=== PATIENT | male | born 1950 | race Caucasian/White ===

== ENCOUNTER 2020-05-25 08:16 | Day surgery (SDC) | payer MEDICARE ==
[~2020-05-25] VITALS: Ht 165.1 cm; Wt 79.1 kg
[~2020-05-25 08:16] MED LIST: Coumadin4 MG PO; ENAL10 PO; HYDACE5 PO; TRAM50 PO; UNKNOWN BP MED; WARF1 PO
--- NOTE | 2020-05-25 09:15 | NUR ---
History, Chart, Medications and Allergies reviewed before start of procedure. Patient reports completing Chlorhexadine shower X2 prior to admission to hospital. Lungs clear T/O to Auscultation. Patient confirms NPO status and agrees with scheduled surgery.
--- NOTE | 2020-05-25 11:57 | NUR ---
PT INCISIONS X3 TO ABDOMEN WITH DURABOND IN PLACE, NO SIGN OF BLEEDING OR SWELLING NOTED. PROVIDED PAIN MED, FOOD AND FLUID. GAVE PHONE SO PATIENT COULD CALL .
--- NOTE | 2020-05-25 12:32 | NUR ---
Patient up to Ambulate independently. Gait steady. Discharge instructions reviewed with patient. Patient verbalizes understanding. Copy given to patient to take home. Patient States Post-Procedure ride home has been arranged. Discharged via wheelchair to private car for ride home.INCISIONS RTO ABDOMENT WITHOUT BLEEDING OR SWELLING. GAVE SCROTAL SUPPORT TO PATIENT. ALL BELONINGS RTETURNED TO PATIENT.
== END 2020-05-25 22:57 | disposition home or self-care (01) ==
LOC: ORSCMMR 08:16 → ORD 10:00 → ORSCMMR 22:57
PROVIDERS: Surgery
PROC: 0YU54JZ Supplement Right Inguinal Region with Synthetic Substitute, Percutaneous Endoscopic Approach (ICD-10-PCS; principal; 2020-05-25 10:00)
PROC: 8E0W4CZ Robotic Assisted Procedure of Trunk Region, Percutaneous Endoscopic Approach (ICD-10-PCS; principal; 2020-05-25 10:00)
DX: K40.90 Unilateral inguinal hernia, without obstruction or gangrene, not specified as recurrent (principal); I49.9 Cardiac arrhythmia, unspecified; Z87.891 Personal history of nicotine dependence; Z79.01 Long term (current) use of anticoagulants
CPT/HCPCS: 49650; S2900; A9270; C1781; J0690; J1100; J1885; J2250; J2405; J2704; J2710; J3010; J7120

== ENCOUNTER → 2021-07-26 | Outpatient (CLI) | payer MEDICARE ==
[2021-07-26 14:13] LABS: Stool Occult Bld Immuno 1 Negative (NEGATIVE)
== END | disposition home or self-care (01) ==
LOC: LAB 07:30 → LAB SHORT 07:30
PROVIDERS: Family Medicine
DX: Z12.11 Encounter for screening for malignant neoplasm of colon (principal)
CPT/HCPCS: G0328

== ENCOUNTER 2023-09-01 14:36 | Emergency (ER) | payer MEDICARE ==
[~2023-09-01] VITALS: Ht 167.6 cm; Wt 68.0 kg
[~2023-09-01 14:36] MED LIST changes: +ATOR10 PO; +ELIQUIS5 M3 PO; +ENALAPRIL MALEA10 M2 PO; +MEMA10 PO; +OMEPRAZOLE MAGN20 M1 PO; +SILDENAFIL CIT100 MG
[2023-09-01 14:48] VITALS: BP 149/102
[2023-09-01] MEDS ORDERED: QUETIAPINE FUMA50 M2 PO (19:53)
== END 2023-09-01 20:00 | disposition home or self-care (01) ==
LOC: ER 14:36
DX: F03.911 Unspecified dementia, unspecified severity, with agitation (principal); I10 Essential (primary) hypertension; Z87.891 Personal history of nicotine dependence; Z79.899 Other long term (current) drug therapy
CPT/HCPCS: 99284

== ENCOUNTER 2023-10-23 16:24 | Emergency (ER) | payer MEDICARE ==
[~2023-10-23] VITALS: Ht 162.6 cm; Wt 63.5 kg
[~2023-10-23 16:24] MED LIST changes: +QUETIAPINE FUMA50 M2 PO
[2023-10-23 16:41] VITALS: BP 134/67
[2023-10-23 19:33] LABS: BASOPHILS ABSOLUTE AUTO 0.07 K/mm3 (0.00-0.23); BASOPHILS PERCENT AUTO 1 % (0-2); EOSINOPHILS ABSOLUTE AUTO 0.04 K/mm3 (0.00-0.68); EOSINOPHILS PERCENT AUTO 0 % (0-6); Hematocrit 43.5 % (37.0-53.0); Hemoglobin 15.1 g/dL (13.5-17.5); IMMATURE GRAN ABSOLUTE AUTO 0.04 K/mm3 (0.00-0.10); IMMATURE GRAN PERCENT AUTO 0 % (0-1); LYMPHOCYTES ABSOLUTE AUTO 0.98 K/mm3 (0.84-5.20); LYMPHOCYTES PERCENT AUTO 8 % (21-46); MONOCYTES ABSOLUTE AUTO 1.19 K/mm3 (0.16-1.47); MONOCYTES PERCENT AUTO 10 % (4-13); Mean Corpuscular HGB 30.7 pg (26.0-34.0); Mean Corpuscular HGB Conc 34.7 g/dL (31.5-36.5); Mean Corpuscular Volume 88 fL (80-100); Mean Platelet Volume 10.1 fL (9.1-12.4); NEUTROPHILS ABSOLUTE AUTO 9.84 K/mm3 (1.96-9.15); NEUTROPHILS PERCENT AUTO 81 % (41-73); Platelet Count 326 K/mm3 (150-400); RDW Coefficient Variation 14.3 % (11.7-14.2); RDW Standard Deviation 45.9 fL (35.1-46.3); Red Blood Cell Count 4.92 M/mm3 (4.30-5.90); White Blood Cell Count 12.16 K/mm3 (4.00-11.30)
[2023-10-23] MEDS ORDERED: QUEtiapine Fumarate 50 MG TAB PO ONE (19:40)
[2023-10-23 19:50] LABS: Albumin, Blood 3.8 g/dL (3.4-5.0); Albumin/Globulin Ratio 1.2 (0.8-1.8); Bilirubin, Total 0.9 mg/dL (0.1-1.0); Bun/Creatinine Ratio 17.6 (12.0-20.0); Calcium, Blood 8.8 mg/dL (8.5-10.1); Creatinine, Blood 1.02 mg/dL (0.60-1.20); Globulin, Blood 3.3 g/dL (2.2-4.0); Potassium, Blood 3.8 mmol/L (3.5-5.5); Total Protein, Blood 7.1 g/dL (6.4-8.2)
[2023-10-25] MEDS ORDERED: QUET25 PO (15:00)
== END 2023-10-24 01:05 | disposition home or self-care (01) ==
LOC: ER 16:24
PROVIDERS: Emergency Medicine
DX: F03.911 Unspecified dementia, unspecified severity, with agitation (principal)
CPT/HCPCS: 80053; 84443; 85025; 99285; A9270

== ENCOUNTER 2023-10-24 17:21 | Emergency (ER) | payer MEDICARE ==
[~2023-10-24] VITALS: Ht 165.1 cm; Wt 74.8 kg
[2023-10-24 17:30] VITALS: BP 152/92
[2023-10-24] MEDS ORDERED: QUEtiapine Fumarate 100 MG Tab PO ONE (19:35)
[2023-10-25] MEDS ORDERED: QUET25 PO (15:00)
== END 2023-10-24 21:40 | disposition home or self-care (01) ==
LOC: ER 17:21
DX: F03.911 Unspecified dementia, unspecified severity, with agitation (principal); I10 Essential (primary) hypertension; I48.91 Unspecified atrial fibrillation; Z79.899 Other long term (current) drug therapy
CPT/HCPCS: 99285; A9270

== ENCOUNTER 2023-10-25 13:06 | Emergency (ER) | payer MEDICARE ==
[~2023-10-25] VITALS: Ht 177.8 cm; Wt 74.8 kg
[2023-10-25] MEDS ORDERED: QUET25 PO (15:00)
[2023-10-25] MEDS ORDERED: QUEtiapine Fumarate 25 MG Tab PO ONE ×2 (15:00→17:10)
[2023-10-25] MEDS ORDERED: Haloperidol Lactate Inj. 5 MG/ML Injection IM ONE (17:55)
[2023-10-25] MEDS ORDERED: DiphenhydrAMINE HCl 50 MG/ML 1ML Vial IV ONE (18:00)
[2023-10-25] MEDS ORDERED: LORazepam 2 MG/ML 1ML Injection IV ONE (18:00)
[2023-10-25] MEDS ORDERED: DiphenhydrAMINE HCl 50 MG/ML 1ML Vial ONE (18:05)
[2023-10-25] MEDS ORDERED: LORazepam 2 MG/ML 1ML Injection ONE (18:05)
[2023-10-25] MEDS ORDERED: OLANZapine 10 MG Vial IM ONE (21:05)
[2023-10-26] MEDS ORDERED: QUET100 PO (08:08)
[2023-10-26] MEDS ORDERED: WARF5 PO (08:11)
[2023-10-26 09:42] VITALS: BP 139/89
[2023-10-26] MEDS ORDERED: QUEtiapine Fumarate 25 MG Tab PO ONE (11:40)
== END 2023-10-26 12:02 | disposition home or self-care (01) ==
LOC: ER 13:06
DX: F03.911 Unspecified dementia, unspecified severity, with agitation (principal); Z79.899 Other long term (current) drug therapy; I48.91 Unspecified atrial fibrillation; I10 Essential (primary) hypertension; Z87.891 Personal history of nicotine dependence
CPT/HCPCS: 93005; 93010; 99284-25; A9270; J1200; J1630; J2060

== ENCOUNTER 2023-10-31 02:43 | Emergency (ER) | payer MEDICARE ==
[~2023-10-31] VITALS: Ht 170.2 cm; Wt 72.6 kg
[~2023-10-31 02:43] MED LIST changes: +QUET100 PO; +QUET25 PO; +WARF5 PO
[2023-10-31 03:10] VITALS: BP 180/99
== END 2023-10-31 05:12 | disposition home or self-care (01) ==
LOC: ER 02:43
DX: F03.911 Unspecified dementia, unspecified severity, with agitation (principal); I48.91 Unspecified atrial fibrillation; I10 Essential (primary) hypertension; Z87.891 Personal history of nicotine dependence; Z79.01 Long term (current) use of anticoagulants; Z79.899 Other long term (current) drug therapy
CPT/HCPCS: 99282

== ENCOUNTER 2023-11-05 00:52 | Emergency (ER) | payer MEDICARE, OTHER ==
[~2023-11-05] VITALS: Ht 160 cm; Wt 54.4 kg
[2023-11-05] MEDS ORDERED: Haloperidol Lactate Inj. 5 MG/ML Injection ONE (01:01)
[2023-11-05] MEDS ORDERED: Haloperidol Lactate Inj. 5 MG/ML Injection IM ONE (01:05)
[2023-11-05] MEDS ORDERED: QUEtiapine Fumarate 100 MG Tab PO ONE (02:05)
[2023-11-05 05:00] VITALS: BP 130/69
== END 2023-11-05 05:12 | disposition home or self-care (01) ==
LOC: ER 00:52
DX: F03.911 Unspecified dementia, unspecified severity, with agitation (principal); I48.91 Unspecified atrial fibrillation; I10 Essential (primary) hypertension; Z87.891 Personal history of nicotine dependence; Z79.01 Long term (current) use of anticoagulants; Z79.899 Other long term (current) drug therapy
CPT/HCPCS: 93005; 93010; 96372; 99285-25; A9270; J1630

== ENCOUNTER 2023-11-07 04:27 | Emergency (ER) | payer MEDICARE ==
[~2023-11-07] VITALS: Ht 175.3 cm; Wt 74.8 kg
[2023-11-07 04:30] VITALS: BP 159/82
[2023-11-07] MEDS ORDERED: Budeprion Xl300 MG PO (05:14)
[2023-11-07] MEDS ORDERED: TAMSULOSIN HCL0.4 M1 PO (05:15)
== END 2023-11-07 08:29 | disposition home or self-care (01) ==
LOC: ER 04:27
DX: F03.918 Unspecified dementia, unspecified severity, with other behavioral disturbance (principal); I48.91 Unspecified atrial fibrillation; Z87.891 Personal history of nicotine dependence; Z79.01 Long term (current) use of anticoagulants; Z79.899 Other long term (current) drug therapy
CPT/HCPCS: 99284

== ENCOUNTER 2023-12-19 18:11 | Emergency (ER) | payer MEDICARE, OTHER ==
[~2023-12-19] VITALS: Ht 167.6 cm; Wt 70.3 kg
[~2023-12-19 18:11] MED LIST changes: +Budeprion Xl300 MG PO; +TAMSULOSIN HCL0.4 M1 PO
[2023-12-19 21:25] VITALS: BP 114/78
== END 2023-12-19 21:28 | disposition home or self-care (01) ==
LOC: ER 18:11
DX: S51.812A Laceration without foreign body of left forearm, initial encounter (principal); I48.91 Unspecified atrial fibrillation; I10 Essential (primary) hypertension; W18.30XA Fall on same level, unspecified, initial encounter; Z87.891 Personal history of nicotine dependence
CPT/HCPCS: 70450; 99284-25

== ENCOUNTER 2023-12-23 18:21 | Emergency (ER) | payer MEDICARE, OTHER ==
[~2023-12-23] VITALS: Ht 165.1 cm; Wt 63.5 kg
[2023-12-23 18:27] VITALS: BP 126/81
[2023-12-23 19:20] LABS: BASOPHILS ABSOLUTE AUTO 0.03 K/mm3 (0.00-0.23); BASOPHILS PERCENT AUTO 0 % (0-2); EOSINOPHILS ABSOLUTE AUTO 0.18 K/mm3 (0.00-0.68); EOSINOPHILS PERCENT AUTO 3 % (0-6); Hematocrit 39.1 % (37.0-53.0); Hemoglobin 13.2 g/dL (13.5-17.5); IMMATURE GRAN ABSOLUTE AUTO 0.02 K/mm3 (0.00-0.10); IMMATURE GRAN PERCENT AUTO 0 % (0-1); LYMPHOCYTES ABSOLUTE AUTO 0.66 K/mm3 (0.84-5.20); LYMPHOCYTES PERCENT AUTO 9 % (21-46); MONOCYTES ABSOLUTE AUTO 0.76 K/mm3 (0.16-1.47); MONOCYTES PERCENT AUTO 10 % (4-13); Mean Corpuscular HGB 30.6 pg (26.0-34.0); Mean Corpuscular HGB Conc 33.8 g/dL (31.5-36.5); Mean Corpuscular Volume 91 fL (80-100); Mean Platelet Volume 9.9 fL (9.1-12.4); NEUTROPHILS ABSOLUTE AUTO 5.69 K/mm3 (1.96-9.15); NEUTROPHILS PERCENT AUTO 77 % (41-73); Platelet Count 233 K/mm3 (150-400); RDW Coefficient Variation 14.6 % (11.7-14.2); RDW Standard Deviation 48.9 fL (35.1-46.3); Red Blood Cell Count 4.31 M/mm3 (4.30-5.90); White Blood Cell Count 7.34 K/mm3 (4.00-11.30)
[2023-12-23 19:38] LABS: International Normalized Ratio 3.3; Prothrombin Time Results 32.3 Sec (9.7-11.5)
[2023-12-23 19:42] LABS: Albumin, Blood 3.1 g/dL (3.4-5.0); Bilirubin, Total 0.5 mg/dL (0.1-1.0); Bun/Creatinine Ratio 21.9 (12.0-20.0); Calcium, Blood 8.4 mg/dL (8.5-10.1); Creatinine, Blood 1.05 mg/dL (0.60-1.20); Globulin, Blood 3.2 g/dL (2.2-4.0); Potassium, Blood 4.2 mmol/L (3.5-5.5); Total Protein, Blood 6.3 g/dL (6.4-8.2)
== END 2023-12-23 22:10 | disposition home or self-care (01) ==
LOC: ER 18:21
PROVIDERS: Student in an Organized Health Care Education/Training Program
DX: S09.90XA Unspecified injury of head, initial encounter (principal); W18.30XA Fall on same level, unspecified, initial encounter; G30.9 Alzheimer's disease, unspecified; F02.80 Dementia in other diseases classified elsewhere, unspecified severity, without behavioral disturbance, psychotic disturbance, mood disturbance, and anxiety; I48.91 Unspecified atrial fibrillation; I10 Essential (primary) hypertension; Z79.01 Long term (current) use of anticoagulants; Z79.899 Other long term (current) drug therapy; Z87.891 Personal history of nicotine dependence
CPT/HCPCS: 70450; 73030; 80053; 85025; 85610; 85730; 99284-25

== ENCOUNTER 2024-05-12 15:10 | Inpatient (IN) | payer MEDICARE, OTHER ==
[~2024-05-12] VITALS: Ht 182.9 cm; Wt 62.9 kg
[2024-05-12 16:21] LABS: BASOPHILS ABSOLUTE AUTO 0.09 K/mm3 (0.00-0.23); BASOPHILS PERCENT AUTO 1 % (0-2); EOSINOPHILS ABSOLUTE AUTO 0.03 K/mm3 (0.00-0.68); EOSINOPHILS PERCENT AUTO 0 % (0-6); Hematocrit 41.2 % (37.0-53.0); Hemoglobin 14.1 g/dL (13.5-17.5); IMMATURE GRAN ABSOLUTE AUTO 0.09 K/mm3 (0.00-0.10); IMMATURE GRAN PERCENT AUTO 1 % (0-1); LYMPHOCYTES ABSOLUTE AUTO 0.37 K/mm3 (0.84-5.20); LYMPHOCYTES PERCENT AUTO 2 % (21-46); MONOCYTES ABSOLUTE AUTO 0.95 K/mm3 (0.16-1.47); MONOCYTES PERCENT AUTO 6 % (4-13); Mean Corpuscular HGB 31.4 pg (26.0-34.0); Mean Corpuscular HGB Conc 34.2 g/dL (31.5-36.5); Mean Corpuscular Volume 92 fL (80-100); Mean Platelet Volume 9.4 fL (9.1-12.4); NEUTROPHILS ABSOLUTE AUTO 14.41 K/mm3 (1.96-9.15); NEUTROPHILS PERCENT AUTO 90 % (41-73); Platelet Count 280 K/mm3 (150-400); RDW Coefficient Variation 13.8 % (11.7-14.2); RDW Standard Deviation 46.6 fL (35.1-46.3); Red Blood Cell Count 4.49 M/mm3 (4.30-5.90); White Blood Cell Count 15.94 K/mm3 (4.00-11.30)
[2024-05-12 16:37] LABS: International Normalized Ratio 1.62; Prothrombin Time Results 16.7 Sec (9.7-11.5)
[2024-05-12 16:43] LABS: Bun/Creatinine Ratio 16.3 (12.0-20.0); Calcium, Blood 8.9 mg/dL (8.5-10.1); Creatinine, Blood 1.35 mg/dL (0.60-1.20); Potassium, Blood 4.6 mmol/L (3.5-5.5)
[2024-05-12 16:44] LABS: Bilirubin, Urine Neg (Neg); Blood, Urine 1+ (Neg); Glucose Qualitative, Urine Neg (Neg); Ketones, Urine Neg (Neg); Leukocyte Esterase, Urine Neg (Neg); Nitrite, Urine Neg (Neg); Protein, Urine Neg (Neg); Source, Urine Clean Catch; Urobilinogen, Urine NORM (Normal)
[2024-05-12 16:52] LABS: Appearance, Urine Hazy (Clear); Color, Urine Pale Yellow (P-Yellow)
[2024-05-12 16:53] LABS: Bacteria Mod /hpf; Squamous Epithelial Cells Rare /hpf (Few); White Blood Cells, Urine 0-2 /hpf (0-5)
[2024-05-12] MEDS ORDERED: NS 1,000 ML IV SCH (17:05)
[2024-05-12] MEDS ORDERED: Vancomycin HCL 1,500 MG in NS 250 ML IV ONE (17:10)
[2024-05-12] MEDS ORDERED: FLU VACC TS2024-25(6MOS UP)/PF 45 MCG/0.5 ML SYRINGE IM SCH (17:55)
[2024-05-12] MEDS ORDERED: QUEtiapine Fumarate 25 MG Tab PO PRN (18:00)
[2024-05-12] MEDS ORDERED: Ondansetron HCl 2 MG / ML 2ML Vial IV PRN (18:00)
[2024-05-12] MEDS ORDERED: Acetaminophen 500 MG Tab PO PRN (18:00)
[2024-05-12] MEDS ORDERED: Lactated Ringer's 1,000 ML IV SCH (18:05)
[2024-05-12] MEDS ORDERED: Warfarin Sodium 3 MG Tab PO ONE (20:20)
[2024-05-12] MEDS ORDERED: Lactated Ringer's 1,000 ML IV ONE (20:40)
[2024-05-12] MEDS ORDERED: QUEtiapine Fumarate 100 MG Tab PO SCH (21:00)
[2024-05-12] MEDS ORDERED: Memantine HCL 5 MG Tab PO SCH (21:00)
[2024-05-12] MEDS ORDERED: SULFAMETHOXAZO1 EAC1 PO (21:44)
[2024-05-12] MEDS ORDERED: CEPH500 PO (21:48)
[2024-05-12] MEDS ORDERED: JANTOVEN4 M2 PO (21:50)
[2024-05-12 22:22] VITALS: BP 111/62
[2024-05-13] MEDS ORDERED: CeFAZolin Sodium 2,000 MG in NS 100 ML IV SCH
[2024-05-13 02:23] VITALS: BP 119/67
--- NOTE | 2024-05-13 05:42 | NUR ---
SHIFT SUMMARY PT ADMITTED AT 2200 FROM THE ED FOR RIGHT ARM CELLULITIS. PT HAS LARGE SKIN TEAR TO HIS RIGHT FOREARM WITH A LARGE PORTION OF MISSING SKIN WITH SURROUNDING CELLULITIS. AREA OF CELLULITIS MARKED, PICTURES TAKEN AND PLACED IN CHART. WOUND WAS DRAINING SEROSANG DRAINAGE. WOUND DRESSED WITH XEROFORM GAUZE, GAUZE FLUFFS, ABD PAD, AND KERLEX, THEN ELEVATED ON A PILLOW. PT ORIENTED TO SELF, RESTLESS, IMPULSIVE, AND AGITATED. MEDICATED WITH SEROQUEL PER EMAR. BED ALARM ON, CALL LIGHT WITHIN REACH, SIDE RAILS UP X2.
[2024-05-13 06:47] LABS: BASOPHILS ABSOLUTE AUTO 0.06 K/mm3 (0.00-0.23); BASOPHILS PERCENT AUTO 0 % (0-2); EOSINOPHILS PERCENT AUTO 0 % (0-6); Hematocrit 36.9 % (37.0-53.0); Hemoglobin 12.8 g/dL (13.5-17.5); IMMATURE GRAN ABSOLUTE AUTO 0.08 K/mm3 (0.00-0.10); IMMATURE GRAN PERCENT AUTO 1 % (0-1); LYMPHOCYTES ABSOLUTE AUTO 0.62 K/mm3 (0.84-5.20); LYMPHOCYTES PERCENT AUTO 4 % (21-46); MONOCYTES ABSOLUTE AUTO 1.34 K/mm3 (0.16-1.47); MONOCYTES PERCENT AUTO 8 % (4-13); Mean Corpuscular HGB 31.2 pg (26.0-34.0); Mean Corpuscular HGB Conc 34.7 g/dL (31.5-36.5); Mean Corpuscular Volume 90 fL (80-100); Mean Platelet Volume 9.4 fL (9.1-12.4); NEUTROPHILS ABSOLUTE AUTO 14.25 K/mm3 (1.96-9.15); NEUTROPHILS PERCENT AUTO 87 % (41-73); Platelet Count 210 K/mm3 (150-400); RDW Coefficient Variation 13.7 % (11.7-14.2); RDW Standard Deviation 45.3 fL (35.1-46.3); White Blood Cell Count 16.35 K/mm3 (4.00-11.30)
[2024-05-13 07:01] LABS: International Normalized Ratio 1.74; Prothrombin Time Results 17.9 Sec (9.7-11.5)
[2024-05-13 07:08] VITALS: BP 107/68
[2024-05-13] MEDS ORDERED: Atorvastatin 10 MG Tab PO SCH (09:00)
[2024-05-13] MEDS ORDERED: Tamsulosin HCl 0.4 MG Cap PO SCH (09:00)
[2024-05-13] MEDS ORDERED: TraMADol HCl 50 MG Tab PO PRN (11:25)
[2024-05-13 11:39] LABS: Albumin, Blood 2.8 g/dL (3.4-5.0); Albumin/Globulin Ratio 0.8 (0.8-1.8); Bilirubin, Total 0.7 mg/dL (0.1-1.0); Bun/Creatinine Ratio 17.7 (12.0-20.0); Calcium, Blood 8.3 mg/dL (8.5-10.1); Creatinine, Blood 0.9 mg/dL (0.60-1.20); Globulin, Blood 3.5 g/dL (2.2-4.0); Potassium, Blood 4.1 mmol/L (3.5-5.5); Total Protein, Blood 6.3 g/dL (6.4-8.2)
--- NOTE | 2024-05-13 13:45 | NUR ---
PT DOUBLED OVER IN PAIN WHEN STANDING. PT GRABBING AT RLQ OF ABDOMEN, REPORTS SEVERE PAIN. PT IS VERY RESTLESS AND ATTEMPTING TO GET OUT OF BED WITHOUT ASSISTANCE, PT IS CONFUSED, DIFFICULT TO REDIRECT. DR. ESCOBEDO NOTIFIED OF ASSESSMENT. PT GIVEN PRN SEROQUEL ORDERED. MD TO PLACE ORDERS FOR ABDOMEN PAIN IF INDICATED. BED ALARM ON, CALL LIGHT IN REACH
[2024-05-13 15:13] VITALS: BP 110/83
[2024-05-13] MEDS ORDERED: Haloperidol Lactate Inj. 5 MG/ML Injection IV PRN (15:25)
[2024-05-13] MEDS ORDERED: Omeprazole 20 MG CapCR PO SCH (16:30)
[2024-05-13] MEDS ORDERED: LORazepam 2 MG/ML 1ML Injection IV ONE (17:00)
[2024-05-13] MEDS ORDERED: Warfarin Sodium 5 MG Tab PO ONE (18:00)
--- NOTE | 2024-05-13 20:23 | NUR ---
SUMMARY- PT CONUSED, NONSENSICAL, UNABLE TO REDIRECT. PT PULLING AT LINES AND WOUND DRESSING. IMPULSIVE, ATTEMPT TO GET OUT OF BED UNSAFELY. NOT ABLE TO REDIRECT WITH BED ALARM. KIRILL VEST RESTRAINT ORDERED. ADVISED CHARGE PT NEEDS SITTER.
[2024-05-13] MEDS ORDERED: Arginine/Glutamine/Calcium Hmb 1 Packet PO SCH (21:00)
[2024-05-13 21:36] VITALS: BP 124/74
[2024-05-14 03:29] VITALS: BP 122/80
--- NOTE | 2024-05-14 04:42 | NUR ---
SHIFT SUMMARY PATIENT HAD NO ACUTE CHANGES. ALERT TO SELF, CONFUSION WITH NON-SENSICAL SPEECH. SITTER 1:1. BEDREST WITH KIRILL ON PER ORDER. PIV INTACT. LR INFUSING @ 125 mL/HR. IV ABX INFUSED. CONDOM CATH IN PLACE. TELE MONITOR AFIB 99. NO S/SX OF CHEST PAIN, SOB, AND N/V. LOW GRADE TEMP AT START OF SHIFT 100.O AND BACK DOWN TO 97.5. CALL LIGHT IN REACH. BED IN LOWEST POSITION. WILL CONTINUE TO MONITOR UNTIL DAY SHIFT NURSE ASSUMES CARE.
[2024-05-14 05:10] LABS: Hemoglobin 11.7 g/dL (13.5-17.5); Mean Corpuscular HGB Conc 34.4 g/dL (31.5-36.5); Mean Corpuscular Volume 90 fL (80-100); Mean Platelet Volume 9.5 fL (9.1-12.4); Platelet Count 237 K/mm3 (150-400); RDW Coefficient Variation 13.6 % (11.7-14.2); RDW Standard Deviation 44.8 fL (35.1-46.3); Red Blood Cell Count 3.77 M/mm3 (4.30-5.90); White Blood Cell Count 15.04 K/mm3 (4.00-11.30)
[2024-05-14 05:22] LABS: International Normalized Ratio 1.85; Prothrombin Time Results 18.9 Sec (9.7-11.5)
[2024-05-14 05:45] LABS: Bun/Creatinine Ratio 19.2 (12.0-20.0); Calcium, Blood 8.3 mg/dL (8.5-10.1); Creatinine, Blood 0.89 mg/dL (0.60-1.20); Potassium, Blood 3.7 mmol/L (3.5-5.5)
[2024-05-14 07:37] VITALS: BP 113/92
[2024-05-14] MEDS ORDERED: buPROPion HCL 150 MG TAB.SR.12H PO SCH (09:00)
[2024-05-14] MEDS ORDERED: Enalapril Maleate 5 MG Tab PO SCH (09:00)
[2024-05-14] MEDS ORDERED: Polyethylene Glycol 3350 17 gm PO SCH (11:00)
[2024-05-14] MEDS ORDERED: Diazepam 5 MG Tab PO PRN (12:55)
[2024-05-14 16:41] VITALS: BP 145/81
--- NOTE | 2024-05-14 16:49 | NUR ---
SPOKE WITH DR. EDMOND STATING SINCE PT HAS NOT HAD ARM CT YET TO MAKE PT NPO AFTER MIDNIGHT FOR POSSIBLE PROCEDURE TOMORROW.
[2024-05-14] MEDS ORDERED: Warfarin Sodium 5 MG Tab PO SCH (18:00)
--- NOTE | 2024-05-14 19:12 | NUR ---
SHIFT SUMMARY: PT ORIENTED TO SELF ONLY. PT IN KIRILL T/O SHIFT. RESTRAINT @ 1630. NEW ORDER PLACED AND EXPIRES TOMORROW 05-15-24 @ [address] CHERY ARRIVED TO PT ROOM THIS SHIFT WHEN WAS AT BEDSIDE. ORDER PLACE FOR R. UPPER EXTREMITY CT. ORDER FOR VALIUM OBTAINED AND GIVEN PRIOR TO IMAGING ARRIVAL. MER[employer]ERS AND ACQUISITIONS MANAGER CALLED POST IMAGE ATTEMPT STATING PT WAS UNABLE TO COOPERATE WITH SCAN AND UNABLE TO READ IMAGE. WILL CALL DR. CHERY IN AM TO UPDATE. CELLULITIS REWRAPPED THIS SHIFT. CALL LIGHT IN REACH. BED IN LOWEST POSITION.
[2024-05-14 19:40] VITALS: BP 161/83
[2024-05-15 04:04] VITALS: BP 138/76
--- NOTE | 2024-05-15 04:22 | NUR ---
SHIFT SUMMARY PATIENT HAD NO ACUTE CHANGES. ALERT TO SELF AND BEDREST. NPO FOR PROCEDURE. KIRILL IN PLACE PER ORDER. SITTER 1:1. AGITATED FIRST PART OF SHIFT UNTIL SCHEDULE SEROQUEL GIVEN AND LESS AGITATED. PIV INTACT. LR INFUSING @ 125 mL/HR IV ABX INFUSED. TELE MONITOR AFIB 108. DENIES CHEST PAIN, SOB, AND N/V. ULTRAM GIVEN FOR RIGHT FOREARM PAIN. DRESSING CHANGES TO R F ARM. PUREWWICK IN PLACE. CALL LIGHT IN REACH. BED IN LOWEST POSITION. WILL CONTINUE TO MONITOR UNTIL DAY SHIFT NURSE ASSUMES CARE.
--- NOTE | 2024-05-15 07:22 | NUR ---
LEFT VOICEMAIL FOR DR. CHERY REGARDING PT BEING UNCOOPERATIVE WITH RFA CT
[2024-05-15 09:04] VITALS: BP 130/92
--- NOTE | 2024-05-15 09:23 | NUR ---
ATTEMPTED TO CALL DR. CHERY AGAIN BUT WENT TO VOICEMAIL. PT NPO AT THIS TIME. WILL AWAIT CALL BACK FOR PLAN.
[2024-05-15 09:40] LABS: Hematocrit 36.6 % (37.0-53.0); Hemoglobin 12.3 g/dL (13.5-17.5); Mean Corpuscular HGB 30.5 pg (26.0-34.0); Mean Corpuscular HGB Conc 33.6 g/dL (31.5-36.5); Mean Corpuscular Volume 91 fL (80-100); Mean Platelet Volume 9.4 fL (9.1-12.4); Platelet Count 264 K/mm3 (150-400); RDW Coefficient Variation 13.5 % (11.7-14.2); RDW Standard Deviation 45.7 fL (35.1-46.3); Red Blood Cell Count 4.03 M/mm3 (4.30-5.90); White Blood Cell Count 11.48 K/mm3 (4.00-11.30)
[2024-05-15 09:54] LABS: International Normalized Ratio 2.45; Prothrombin Time Results 24.5 Sec (9.7-11.5)
[2024-05-15 10:00] LABS: Bun/Creatinine Ratio 16.1 (12.0-20.0); Calcium, Blood 8.6 mg/dL (8.5-10.1); Creatinine, Blood 0.75 mg/dL (0.60-1.20)
[2024-05-15] MEDS ORDERED: LORazepam 2 MG/ML 1ML Injection IV ONE ×2 (10:10→13:15)
[2024-05-15 15:01] VITALS: BP 133/73
[2024-05-15] MEDS ORDERED: NS 250 ML IV PRN (16:15)
--- NOTE | 2024-05-15 17:43 | NUR ---
SHIFT SUMMARY: PT ORIENTED TO SELF ONLY. SPOKE WITH DR. ESCOBEDO AND DR. CHERY THIS AM REGARDING PT INABILITY TO COOPERATE TO 05-14-24 CT SCAN. ONE TIME ORDER PLACED FOR IV ATIVAN TO ATTEMPT REPEAT OF RIGHT FOREARM CT SCAN. CT COMPLETED THIS AFTERNOON. RESULTS POPULATED IN CHART. PT PULLED IV OUT 3 TIMES THIS SHIFT. REPLACED IN LFA. LR INFUSION D/C. TELE DISCONTINUED AND SENT BACK. DRESSING TO RIGHT FOREARM REWRAPPED THREE TIMES THIS SHIFT. FOREARM APPEARS LESS RED AND HOT TO THE TOUCH. Q2 RESTRAINT DOCUMENTATION COMPLETED. ORDER @ 1630 THIS SHIFT. NEW ORDER PLACED TO TOMORROW 05-16-24 @ 1630. CALL LIGHT IN REACH. BED IN LOWEST POSITION.
[2024-05-15 19:15] VITALS: BP 118/81
--- NOTE | 2024-05-16 04:30 | NUR ---
SHIFT SUMMARY PATIENT ANXIOUS/AGITATED AT SHIFT CHANGE PULLING OFF RIGHT FOREARM DRESSING X 2. ALERT TO SELF AND BEDREST. SITTER 1:1. DENIES CHEST PAIN, SOB, AND N/V. VSS/AFEBRILE. PIV INTACT. IV ABX INFUSED. ADDITIONAL SEROQUEL 25 MG GIVEN FOR AGITATION AND ULTRAM FOR RIGHT ARM PAIN. NPO FOR POSSIBLE I & D TODAY. VISUAL AND AUDITORY HALLUCINATIONS. KIRILL VEST PER ORDER. CALL LIGHT IN REACH. BED IN LOWEST POSITION. WILL CONTINUE TO MONITOR UNTIL DAY SHIFT ASSUMES CARE.
[2024-05-16 07:23] VITALS: BP 139/99
[2024-05-16] MEDS ORDERED: LORazepam 2 MG/ML 1ML Injection IV ONE (08:05)
[2024-05-16 09:49] LABS: Hematocrit 37.3 % (37.0-53.0); Hemoglobin 12.8 g/dL (13.5-17.5); Mean Corpuscular HGB 31.1 pg (26.0-34.0); Mean Corpuscular HGB Conc 34.3 g/dL (31.5-36.5); Mean Corpuscular Volume 91 fL (80-100); Mean Platelet Volume 9.4 fL (9.1-12.4); Platelet Count 304 K/mm3 (150-400); RDW Coefficient Variation 13.3 % (11.7-14.2); RDW Standard Deviation 44.4 fL (35.1-46.3); Red Blood Cell Count 4.12 M/mm3 (4.30-5.90); White Blood Cell Count 9.65 K/mm3 (4.00-11.30)
[2024-05-16 10:12] LABS: International Normalized Ratio 2.83
[2024-05-16 10:24] LABS: Bun/Creatinine Ratio 23.3 (12.0-20.0); Calcium, Blood 8.7 mg/dL (8.5-10.1); Creatinine, Blood 0.69 mg/dL (0.60-1.20); Potassium, Blood 3.8 mmol/L (3.5-5.5)
[2024-05-16 15:42] VITALS: BP 123/76
--- NOTE | 2024-05-16 17:57 | NUR ---
PATIENT A/O TO SELF ONLY. KIRILL VEST IN USE TO KEEP PATIENT FROM GETTING UP UNASSISTED. 1:1 SITTER AT BEDSIDE, BUT PATIENT CAN BE DIFFICULT TO REDIRECT. R ARM WRAPPED WITH ABD AND JASIEL WRAP PER DR RAMIREZ ORDER. ANCEF TO TREAT INFECTION. PATIENT INCONTIENT OF BLADDER, LARGE CONTINENT BM THIS EVENING. TOLERATING REGULAR DIET. NO NEW CONCERNS THIS SHIFT. AT BEDSIDE THIS AFTERNOON.
[2024-05-16 19:40] VITALS: BP 120/77
[2024-05-17 02:06] VITALS: BP 110/81
--- NOTE | 2024-05-17 05:12 | NUR ---
TRANSPORT NURSE SUMMARY VSS. CONFUSED TO QUESTIONS ASKED. CONTINUES TO ATTEMPT OOB WHILE UNSTEADY ON FEET. NOT REDIRECTABLE, REMAINS IN KIRILL JACKET FOR SAFETY PER MD ORDERS. 1:1 STAFF OBSERVATION WELL. IV ANTIBIOTICS ADMIN FOR RIGHT ARM CELLULITIS. ARM REMAINS EDEMATOUS, WRAPPED AND ELEVATED ON PILLOW. HAS BEEN RESTING QUIETLY AT INTERVALS. CALL LIGHT IN REACH, RAILS UP X 2 AND BED IN LOW POSITION FOR SAFETY. WILL CONTINUE TO MONITOR
[2024-05-17 07:32] LABS: Bun/Creatinine Ratio 26.3 (12.0-20.0); Calcium, Blood 8.7 mg/dL (8.5-10.1); Creatinine, Blood 0.8 mg/dL (0.60-1.20); Potassium, Blood 3.6 mmol/L (3.5-5.5)
[2024-05-17 08:11] LABS: International Normalized Ratio 2.02; Prothrombin Time Results 20.5 Sec (9.7-11.5)
[2024-05-17 09:16] VITALS: BP 137/83
[2024-05-17 15:50] VITALS: BP 126/93
--- NOTE | 2024-05-17 18:48 | NUR ---
PATIENT A/O TO SELF ONLY. REMAINS IN KIRILL WITH 1:1 SITTER AT BEDSIDE. VSS, ON RA. TRAMADOL GIVEN X1 TODAY FOR BACK/R ARM PAIN. DRESSING TO R ARM CHANGED USING MEPITEL, ABD AND JASIEL WRAP. R ARM/HAND EDEMATOUS, ELEVATING ON PILLOWS. PATIENT AMBULATING WITH GB AND 1PA. CONT/INCONTINENT OF URINE. NO NEW CONCERNS THIS SHIFT.
[2024-05-17 19:23] VITALS: BP 145/93
--- NOTE | 2024-05-18 04:54 | NUR ---
RECORD PRODUCER SUMMARY VSS. ALERT TO SELF, CONFUSED AND DIFFICULT TO REDIRECT RE SAFETY IN BED. CONT TO TRY TO GET OOB EVEN THOUGH HE IS VERY UNSTEADY ON FEET. INCONT OF URINE A FEW TIMES, CHANGED AND REPOSITIONED IN TERMITENTLY, EVEN THOUGH HE CAN REPOSITION (AND DOES) SELF FOR COMFORT. KIRILL IN PLACE, ASSESSED Q 2 HRS IV ANTIBIOTICS ADMINISTERED ORDERED FOR CELLULITIS - UNWRAPPED DRESSING OF RIGHT ARM A FEW TIMES, ARM RERAPPED A FEW TIMES, ENCOURAGED TO COMPLY WITH TREATMENT. LATER IN THE SHIFT, WENT TO SLEEP AND IS CURRENTLY RESTING QUIETLY WITH NO NOTED DISTRESS. 1:1 SITTER AT BEDSIDE, RAILS UP X 2, CALL LIGHT IN REACH AND BED IN LOW POSITION FOR SAFETY.
[2024-05-18 06:22] LABS: Hematocrit 38.8 % (37.0-53.0); Mean Corpuscular HGB 30.6 pg (26.0-34.0); Mean Corpuscular HGB Conc 33.5 g/dL (31.5-36.5); Mean Corpuscular Volume 91 fL (80-100); Mean Platelet Volume 9.4 fL (9.1-12.4); Platelet Count 378 K/mm3 (150-400); RDW Coefficient Variation 13.4 % (11.7-14.2); RDW Standard Deviation 44.8 fL (35.1-46.3); Red Blood Cell Count 4.25 M/mm3 (4.30-5.90); White Blood Cell Count 9.14 K/mm3 (4.00-11.30)
[2024-05-18 06:35] LABS: International Normalized Ratio 1.44
[2024-05-18 06:44] LABS: Bun/Creatinine Ratio 19.7 (12.0-20.0); Calcium, Blood 8.8 mg/dL (8.5-10.1); Creatinine, Blood 0.91 mg/dL (0.60-1.20)
[2024-05-18 08:57] VITALS: BP 137/83
[2024-05-18 15:13] VITALS: BP 121/79
[2024-05-18] MEDS ORDERED: QUEtiapine Fumarate 25 MG Tab PO ONE (16:10)
--- NOTE | 2024-05-18 18:07 | NUR ---
SHIFT SUMMARY THIS RN ASSUMED CARE OF PATIENT AT APPROX. 1400. PATIENT IN KIRILL VEST. PATIENT HAS 1:1 SITTER. PATIENT BEGAN TO GET RESTLESS AT APPROX 1600. RIPPED KIRILL AND NEW ONE APPLIED. PATIENT NOT REDIRECTABLE AT THAT TIME. PATIENT A&O TO SELF. DR NOTIFIED ALL PRN MEDICATIONS WERE GIVEN. ONE TIME ORDER RECIEVED AND GIVEN. MINIMAL EFFECT. PATIENT ALSO MEDICATED FOR PAIN X1. PATIENT STILL RESTLESS AND OCCASSIONALLY PULLS AT KIRILL BUT MORE REDIRECTABLE. PATIENT CHEWED PO MEDICATIONS. PER REPORT, PATIENT HAD PULLED OUT HIS IV EARLIER THIS SHIFT. PATIENT HAS BEEN ABLE TO BE REDIRECTED AWAY FROM IV FOR THE REST OF SHIFT. PATIENT IS EATING AND DRINKING WELL. HAD SNACK THIS AFTERNOON.
[2024-05-18 19:39] VITALS: BP 129/74
[2024-05-19 04:28] VITALS: BP 116/81
--- NOTE | 2024-05-19 06:15 | NUR ---
SHIFT SUMMARY: Pt is admitted for right forearm cellulitis and is a full code. Is alert but only able to make needs known sometimes. Only alert to self with confusion. ADLs have been 1p. Have not noted any SX of pain and has not stated that he was in any pain or discomfort. Has been in a posy vest through shift with 1:1 due to his confusion and the inability to make safe decisions.
[2024-05-19 07:26] VITALS: BP 127/85
[2024-05-19] MEDS ORDERED: QUEtiapine Fumarate 50 MG TAB PO PRN (07:45)
[2024-05-19] MEDS ORDERED: ACET500 PO (11:58)
[2024-05-19] MEDS ORDERED: JUVEN PACKET1 EAC3 PO (11:58)
[2024-05-19] MEDS ORDERED: MIRALAX17 GM PO (11:58)
== END 2024-05-19 14:50 | disposition home or self-care (01) | DRG 871 ==
LOC: ER 15:10 → ERHOLD 18:24 → MEDS 18:24
PROVIDERS: Emergency Medicine; Internal Medicine; Nurse Practitioner Acute Care; Pharmacist; ADMIT Student in an Organized Health Care Education/Training Program
PROC: 3E03329 Introduction of Other Anti-infective into Peripheral Vein, Percutaneous Approach (ICD-10-PCS; 2024-05-12)
PROC: 0J9G3ZZ Drainage of Right Lower Arm Subcutaneous Tissue and Fascia, Percutaneous Approach (ICD-10-PCS; principal; 2024-05-17)
DX: A41.9 Sepsis, unspecified organism (principal); G92.8 Other toxic encephalopathy; L03.113 Cellulitis of right upper limb; I48.20 Chronic atrial fibrillation, unspecified; N17.9 Acute kidney failure, unspecified; Z66 Do not resuscitate; I10 Essential (primary) hypertension; Z78.1 Physical restraint status; G89.29 Other chronic pain; M54.9 Dorsalgia, unspecified; K21.9 Gastro-esophageal reflux disease without esophagitis; N40.0 Benign prostatic hyperplasia without lower urinary tract symptoms; E78.5 Hyperlipidemia, unspecified; S50.11XA Contusion of right forearm, initial encounter; G30.9 Alzheimer's disease, unspecified; F02.80 Dementia in other diseases classified elsewhere, unspecified severity, without behavioral disturbance, psychotic disturbance, mood disturbance, and anxiety; S41.111A Laceration without foreign body of right upper arm, initial encounter; K59.00 Constipation, unspecified; Z79.899 Other long term (current) drug therapy; Z79.01 Long term (current) use of anticoagulants; W19.XXXA Unspecified fall, initial encounter
CPT/HCPCS: 10030; 36415; 70450; 73090; 73201; 74177; 80048; 80053; 81001; 83605; 85025; 85027; 85610; 85730; 87040; 87070; 87075; 87086; 87205; 96374; 99285-25; A9270; J0690; J1630; J2060; J3370; J7030; J7050; J7120; Q9967

== ENCOUNTER 2024-06-15 19:41 | Emergency (ER) | payer MEDICARE, OTHER ==
[~2024-06-15] VITALS: Ht 172.7 cm; Wt 65.8 kg
[~2024-06-15 19:41] MED LIST changes: +ACET500 PO; +CEPH500 PO; +JANTOVEN4 M2 PO; +JUVEN PACKET1 EAC3 PO; +MIRALAX17 GM PO; +SULFAMETHOXAZO1 EAC1 PO
[2024-06-15 19:55] LABS: BASOPHILS ABSOLUTE AUTO 0.06 K/mm3 (0.00-0.23); BASOPHILS PERCENT AUTO 1 % (0-2); EOSINOPHILS ABSOLUTE AUTO 0.06 K/mm3 (0.00-0.68); EOSINOPHILS PERCENT AUTO 1 % (0-6); Hematocrit 36.9 % (37.0-53.0); Hemoglobin 12.4 g/dL (13.5-17.5); IMMATURE GRAN ABSOLUTE AUTO 0.02 K/mm3 (0.00-0.10); IMMATURE GRAN PERCENT AUTO 0 % (0-1); LYMPHOCYTES ABSOLUTE AUTO 0.41 K/mm3 (0.84-5.20); LYMPHOCYTES PERCENT AUTO 4 % (21-46); MONOCYTES ABSOLUTE AUTO 0.93 K/mm3 (0.16-1.47); MONOCYTES PERCENT AUTO 10 % (4-13); Mean Corpuscular HGB 30.7 pg (26.0-34.0); Mean Corpuscular HGB Conc 33.6 g/dL (31.5-36.5); Mean Corpuscular Volume 91 fL (80-100); Mean Platelet Volume 9.1 fL (9.1-12.4); NEUTROPHILS ABSOLUTE AUTO 8.04 K/mm3 (1.96-9.15); NEUTROPHILS PERCENT AUTO 85 % (41-73); Platelet Count 173 K/mm3 (150-400); RDW Coefficient Variation 14.6 % (11.7-14.2); RDW Standard Deviation 49.2 fL (35.1-46.3); Red Blood Cell Count 4.04 M/mm3 (4.30-5.90); White Blood Cell Count 9.52 K/mm3 (4.00-11.30)
[2024-06-15 20:09] LABS: International Normalized Ratio 2.79; Prothrombin Time Results 27.7 Sec (9.7-11.5)
[2024-06-15 20:13] LABS: CORONAVIRUS COVID-19 AG Negative (NEGATIVE); INFLUENZA A AG Positive (NEGATIVE); INFLUENZA B AG Negative (NEGATIVE)
[2024-06-15 20:18] LABS: Albumin, Blood 3.1 g/dL (3.4-5.0); Albumin/Globulin Ratio 0.9 (0.8-1.8); Bilirubin, Total 0.6 mg/dL (0.1-1.0); Bun/Creatinine Ratio 25.5 (12.0-20.0); Calcium, Blood 8.4 mg/dL (8.5-10.1); Creatinine, Blood 1.57 mg/dL (0.60-1.20); Globulin, Blood 3.5 g/dL (2.2-4.0); Potassium, Blood 4.3 mmol/L (3.5-5.5); Total Protein, Blood 6.6 g/dL (6.4-8.2)
[2024-06-15 21:45] VITALS: BP 106/68
== END 2024-06-15 22:02 | disposition home or self-care (01) ==
LOC: ER 19:41
PROVIDERS: Emergency Medicine
DX: J10.00 Influenza due to other identified influenza virus with unspecified type of pneumonia (principal); I10 Essential (primary) hypertension; I48.91 Unspecified atrial fibrillation; Z79.899 Other long term (current) drug therapy; Z79.1 Long term (current) use of non-steroidal anti-inflammatories (NSAID); Z79.01 Long term (current) use of anticoagulants; Z79.2 Long term (current) use of antibiotics; Z87.891 Personal history of nicotine dependence
CPT/HCPCS: 70450; 71045; 80053; 85025; 85610; 87428-QW; 93005; 93010; 99285-25

== ENCOUNTER 2024-07-11 19:09 | Emergency (ER) | payer OTHER, MEDICARE ==
[~2024-07-11] VITALS: Ht 167.6 cm; Wt 77.1 kg
[2024-07-11 19:19] VITALS: BP 123/71
== END 2024-07-11 22:28 | disposition home or self-care (01) ==
LOC: ER 19:09
DX: S50.311A Abrasion of right elbow, initial encounter (principal); I48.91 Unspecified atrial fibrillation; I10 Essential (primary) hypertension; F03.90 Unspecified dementia, unspecified severity, without behavioral disturbance, psychotic disturbance, mood disturbance, and anxiety; Z87.891 Personal history of nicotine dependence; Z79.01 Long term (current) use of anticoagulants; Z79.899 Other long term (current) drug therapy; W01.0XXA Fall on same level from slipping, tripping and stumbling without subsequent striking against object, initial encounter; Y92.129 Unspecified place in nursing home as the place of occurrence of the external cause
CPT/HCPCS: 73080; 99283-25

== ENCOUNTER → 2024-07-20 | Outpatient (CLI) | payer MEDICARE, OTHER ==
[2024-07-20 12:56] LABS: Source, Urine Clean Catch
[2024-07-20 14:22] LABS: Appearance, Urine Clear (Clear); Bilirubin, Urine Neg (Neg); Blood, Urine 1+ (Neg); Color, Urine Yellow (P-Yellow); Glucose Qualitative, Urine Neg (Neg); Ketones, Urine Neg (Neg); Leukocyte Esterase, Urine Neg (Neg); Nitrite, Urine Neg (Neg); Protein, Urine Neg (Neg); Urobilinogen, Urine NORM (Normal)
[2024-07-20 14:30] LABS: Bacteria Few /hpf; Red Blood Cells, Urine 0-2 /hpf (0-2); Squamous Epithelial Cells Rare /hpf (Few); White Blood Cells, Urine 0-2 /hpf (0-5)
== END | disposition home or self-care (01) ==
LOC: LAB SHORT 12:00 → LAB 12:00
PROVIDERS: Family Medicine
DX: N39.0 Urinary tract infection, site not specified (principal)
CPT/HCPCS: 81001

== ENCOUNTER 2024-08-03 19:03 | Emergency (ER) | payer OTHER, MEDICARE ==
[~2024-08-03] VITALS: Ht 172.7 cm; Wt 77.1 kg
[2024-08-03 20:17] VITALS: BP 113/76
[2024-08-03] MEDS ORDERED: Diphth,Pertuss(Acell),Tet Vac 0.5 ML VIAL IM ONE (22:10)
== END 2024-08-03 22:26 | disposition home or self-care (01) ==
LOC: ER 19:03
DX: S51.011A Laceration without foreign body of right elbow, initial encounter (principal); W01.0XXA Fall on same level from slipping, tripping and stumbling without subsequent striking against object, initial encounter; I10 Essential (primary) hypertension; F03.90 Unspecified dementia, unspecified severity, without behavioral disturbance, psychotic disturbance, mood disturbance, and anxiety; I48.91 Unspecified atrial fibrillation; Z87.891 Personal history of nicotine dependence; Z79.01 Long term (current) use of anticoagulants; Z79.899 Other long term (current) drug therapy; Z23 Encounter for immunization
CPT/HCPCS: 70450; 71045; 90471; 90715; 99284-25

== ENCOUNTER 2024-08-26 17:52 | Emergency (ER) | payer MEDICARE, OTHER ==
[~2024-08-26] VITALS: Ht 170.2 cm; Wt 74.8 kg
[2024-08-26 18:02] VITALS: BP 120/86
== END 2024-08-26 19:51 ==
LOC: ER 17:52
DX: S00.93XA Contusion of unspecified part of head, initial encounter (principal); Z79.01 Long term (current) use of anticoagulants; Z79.2 Long term (current) use of antibiotics; Z79.899 Other long term (current) drug therapy; I48.91 Unspecified atrial fibrillation; I10 Essential (primary) hypertension; Z87.891 Personal history of nicotine dependence; W18.30XA Fall on same level, unspecified, initial encounter
CPT/HCPCS: 70450; 72125; 93005; 93010; 99284-25